=== PATIENT | male | born 1955 | race African-American/Black ===

== ENCOUNTER 2017-03-18 01:09 | Emergency (ER) | payer MEDICAID ==
[~2017-03-18] VITALS: Ht 172.7 cm; Wt 99.8 kg
[~2017-03-18 01:09] MED LIST: CETI10TA93; CLIN1CAP4 PO; CLON0.1T; ESCI10TA; GABA800T97; HYDRX10T; LOSA50TA27; OMEP20TA44; TRAM50TA2
[2017-03-18 02:41] LABS: INR 2.05 (0.9-1.15); Partial Thromboplastin Time 37.8 sec (22.64-33.71)
[2017-03-18 02:43] LABS: Prothrombin Time 22.5 sec (9.37-12.3)
[2017-03-18 02:56] LABS: Albumin 3.5 g/dL (3.4-5.0); Alkaline Phosphatase 92 U/L (45-117); Anion Gap 9 (5-15); Aspartate Aminotransferase 26 U/L (15-37); BUN/Creatinine Ratio 17.3; Bilirubin, Total 0.9 mg/dL (0.2-1.0); Blood Urea Nitrogen 46 mg/dL (7-18); Calcium 9.1 mg/dL (8.5-10.1); Carbon Dioxide 23 mmol/L (21-32); Chloride 114 mmol/L (98-107); GFR African American 31 mL/min; GFR Non-African American 26 mL/min; Glucose 125 mg/dL (74-106); Magnesium 2.5 mg/dL (1.6-2.6); Potassium 4.4 mmol/L (3.5-5.1); Sodium 146 mmol/L (136-145); Total Protein 7.8 g/dL (6.4-8.2)
[2017-03-18 03:03] LABS: Basophils # (auto) 0 uL; Basophils % (auto) 0.4 % (0.0-2.0); CONDITION Y; Eosinophils # (auto) 0 uL; Eosinophils % (auto) 0.2 % (0.0-7.0); Hematocrit 33.7 % (41.0-53.0); Hemoglobin 11.2 g/dL (13.5-17.5); Lymphocytes # (auto) 1.3 uL; Lymphocytes % (auto) 17.7 % (10.0-50.0); Mean Corpuscular Hemoglobin 29.9 pg (28.0-32.0); Mean Corpuscular Hgb Conc. 33.2 g/dL (32.0-36.0); Mean Platelet Volume 7.4 fL (7.4-10.4); Monocytes # (auto) 0.6 uL; Neutrophils # (auto) 5.5 uL; Neutrophils % (auto) 73.7 % (37.0-80.0); Platelet Count (auto) 265 10^3/uL (140-450); Red Cell Distribution Width 15.7 % (11.6-16.0); White Blood Cell 7.5 10^3/uL (4.4-10.8)
[2017-03-18 03:52] LABS: B-Type Natriuretic Peptide 20.96 pg/mL (0-100)
[2017-03-18 03:53] LABS: Temperature: 21.9 C (20.0-25.0)
[2017-03-18] MEDS ORDERED: SODIUM CHLORIDE 0.9% 1,000 ML IV ONE (04:00)
[2017-03-18] MEDS ORDERED: ONDANSETRON HCL 4 MG/2 ML VIAL ONE (05:12)
[2017-03-18] MEDS ORDERED: ONDANSETRON HCL 4 MG/2 ML VIAL IV ONE (05:15)
[2017-03-18] MEDS ORDERED: HYDROmorphone HCL 2 MG/ML VL IV ONE (05:15)
[2017-03-18] MEDS ORDERED: LORazepam 2MG/ML-1ML VIAL ONE (05:18)
[2017-03-18] MEDS ORDERED: MIDAZOLAM HCL 5 MG/ML-1ML VIAL ONE (05:50)
[2017-03-18] MEDS ORDERED: LORazepam 2MG/ML-1ML VIAL IV ONE (06:00)
[2017-03-18] MEDS ORDERED: MIDAZOLAM HCL 5 MG/ML-1ML VIAL IV ONE (06:15)
[2017-03-18 10:09] LABS: Allen Test Yes; Base Excess -6.2 mmol/L (-2.0-2.0); Blood 02Sat 96.3 % (96-100); Blood COHb 0.9 % (0.5-1.5); Blood MetHb 0.2 % (0.0-1.5); HCO3 19.6 mmol/L (22-26.0); HHb 3.7 % (0.0-5.0); MODE MASK - SIMPLE; O2Hb 95.2 % (94.0-97.0); PCO2 39.8 mmHg (35.0-45.0); PCO2(T) 39.8 mmHg (35.0-45.0); PO2 102.2 mmHg (80.0-100.0); PO2(T) 102.2 mmHg (80.0-100.0); Sample Type Arterial
[2017-03-18 10:50] LABS: Urine RBC None Seen /hpf (0 - 3)
[2017-03-18 11:00] LABS: Urine Bilirubin Negative (Negative); Urine Blood Negative /uL (Negative); Urine Color Yellow (Yellow); Urine Glucose Normal (Normal); Urine Ketone Negative (Negative); Urine Mucus FEW (None Seen); Urine Nitrite Negative (Negative); Urine Squamous Epithelial Cell FEW /hpf (<5); Urine Urobilinogen Normal (Negative); Urine pH 5.5 (5.0-8.0)
[2017-03-18 11:52] VITALS: BP 129/75
== END 2017-03-18 12:10 | disposition short-term general hospital (02) ==
LOC: ER 01:09 → EDBD 01:09 → ER 12:10
DX: R41.82 Altered mental status, unspecified (principal); N17.9 Acute kidney failure, unspecified; T84.89XA Other specified complication of internal orthopedic prosthetic devices, implants and grafts, initial encounter; F17.200 Nicotine dependence, unspecified, uncomplicated; F41.9 Anxiety disorder, unspecified; I10 Essential (primary) hypertension; E78.5 Hyperlipidemia, unspecified; Z88.0 Allergy status to penicillin; Z91.030 Bee allergy status; Z59.0 Homelessness; Y83.8 Other surgical procedures as the cause of abnormal reaction of the patient, or of later complication, without mention of misadventure at the time of the procedure; Y92.89 Other specified places as the place of occurrence of the external cause
CPT/HCPCS: 27265; 36415; 36600; 51702; 70450; 71010; 73501; 74176; 80053; 81001; 82805; 83605; 83735; 83880; 84484; 85025; 85610; 85730; 87040; 93005; 96361; 96374; 96375; 99285; J1170; J2060; J2250; J2405; J7030; 27250

== ENCOUNTER 2017-03-30 19:57 | Emergency (ER) | payer MEDICAID ==
[~2017-03-30] VITALS: Ht 177.8 cm; Wt 112.5 kg
[2017-03-30] MEDS ORDERED: ONDANSETRON HCL 4 MG/2 ML VIAL IV ONE (21:15)
[2017-03-30] MEDS ORDERED: HYDROmorphone HCL 2 MG/ML VL IV ONE (21:15)
[2017-03-30 22:33] LABS: Basophils # (auto) 0 uL; Basophils % (auto) 0.2 % (0.0-2.0); CONDITION Y; Eosinophils # (auto) 0 uL; Eosinophils % (auto) 0.3 % (0.0-7.0); Hematocrit 30.1 % (41.0-53.0); Lymphocytes # (auto) 1.6 uL; Mean Corpuscular Hemoglobin 30.3 pg (28.0-32.0); Mean Corpuscular Hgb Conc. 33.3 g/dL (32.0-36.0); Mean Corpuscular Volume 91.1 fL (80.0-100.0); Mean Platelet Volume 7.1 fL (7.4-10.4); Monocytes # (auto) 0.5 uL; Monocytes % (auto) 6.8 % (0.0-12.0); Neutrophils # (auto) 5.3 uL; Neutrophils % (auto) 71.7 % (37.0-80.0); Platelet Count (auto) 324 10^3/uL (140-450); Red Cell Distribution Width 15.9 % (11.6-16.0); White Blood Cell 7.4 10^3/uL (4.4-10.8)
[2017-03-30 22:48] LABS: INR 1.61 (0.9-1.15); Partial Thromboplastin Time 46.6 sec (22.64-33.71)
[2017-03-30 22:49] LABS: Albumin 3.2 g/dL (3.4-5.0); BUN/Creatinine Ratio 13.6; Calcium 8.2 mg/dL (8.5-10.1); Potassium 3.9 mmol/L (3.5-5.1)
[2017-03-30 22:52] LABS: Bilirubin, Total 0.7 mg/dL (0.2-1.0); Total Protein 7.9 g/dL (6.4-8.2)
[2017-03-30 23:11] LABS: Prothrombin Time 17.6 sec (9.37-12.3)
[2017-03-31 02:02] VITALS: BP 116/82
== END 2017-03-31 02:14 | disposition short-term general hospital (02) ==
LOC: EDBD 19:57 → ER 20:11
DX: S70.11XA Contusion of right thigh, initial encounter (principal); D68.9 Coagulation defect, unspecified; I10 Essential (primary) hypertension; G89.4 Chronic pain syndrome; G89.29 Other chronic pain; M54.9 Dorsalgia, unspecified; F17.210 Nicotine dependence, cigarettes, uncomplicated; Z88.0 Allergy status to penicillin; Z91.040 Latex allergy status; Z59.0 Homelessness; X58.XXXA Exposure to other specified factors, initial encounter; Y93.89 Activity, other specified; Y99.8 Other external cause status; Y92.89 Other specified places as the place of occurrence of the external cause
CPT/HCPCS: 36415; 73700; 80053; 85025; 85610; 85730; 93971; 96374; 96375; 99285; J1170; J2405

== ENCOUNTER 2017-10-24 17:08 | Emergency (ER) | payer MEDICAID ==
[~2017-10-24] VITALS: Ht 175.3 cm; Wt 104.3 kg
[2017-10-24] MEDS ORDERED: HYDROcodone-ACET 10/325MG TAB PO ONE (19:00)
[2017-10-24 23:01] VITALS: BP 107/60
== END 2017-10-24 23:58 | disposition short-term general hospital (02) ==
LOC: ER 17:10
DX: M25.552 Pain in left hip (principal); E78.5 Hyperlipidemia, unspecified; I10 Essential (primary) hypertension; F17.210 Nicotine dependence, cigarettes, uncomplicated; Z88.0 Allergy status to penicillin; Z91.030 Bee allergy status; Z86.19 Personal history of other infectious and parasitic diseases; Z79.899 Other long term (current) drug therapy
CPT/HCPCS: 73502